=== PATIENT | female | born 1975 | race Native Hawaiian/Other Pacific Islander ===

== ENCOUNTER 2017-04-27 11:49 | Emergency (ER) | payer OTHER ==
[~2017-04-27] VITALS: Ht 162.6 cm; Wt 78.9 kg
[2017-04-27 12:34] LABS: PLATELET COUNT 277 K/uL (152-353)
[2017-04-27 12:44] LABS: POTASSIUM 3.5 mmol/L (3.6-5.2); SODIUM 138 mmol/L (136-145)
[2017-04-27 14:00] VITALS: TEMP 98.1
[2017-04-27 14:45] VITALS: BP 178/94
== END 2017-04-27 14:45 | disposition home or self-care (01) ==
LOC: ED 11:49
PROVIDERS: Family Medicine
DX: K52.9 Noninfective gastroenteritis and colitis, unspecified (principal); R06.2 Wheezing
CPT/HCPCS: 36415; 80053; 85027; 94664; 96374; 96375; 99284; J2405; J2920